=== PATIENT | male | born 1985 | race Caucasian/White ===

== ENCOUNTER 2023-10-22 11:33 | Emergency (ER) | payer OTHER, SELFPAY ==
[2023-10-22 11:34] VITALS: BP 126/91; PULSE 77; RESP 16; TEMP 36.7; O2SAT 99; BMI 29.6
[2023-10-22 12:34] VITALS: BP 115/89; PULSE 88; RESP 16; TEMP 36.2; O2SAT 99
--- NOTE | 2023-10-22 12:39 | ED.VIS.LOWEX ---
HPI History of Present Illness Chief Complaint: Lower Extremity Injury Informant: patient Narrative Narrative: 38-year-old male presenting to the emergency room out of concern for DVT findings on venous Doppler. Patient recently flew to [place] and back. Just over a week after returning home he began to experience some discomfort in the distal medial left thigh extending down onto the proximal left medial leg. He notes there is some erythema. Denies any leg swelling. It continued to bother him reaching a high point on Friday. He was seen in urgent care and was set up for a duplex ultrasound. Pain has gotten better. He came today for a duplex ultrasound which is demonstrating an acute superficial vein thrombosis in the left greater saphenous vein from junction to proximal calf. Thrombus is noted proximally to be about 2.39 cm from the common femoral vein is not compressible. There is acute superficial vein thrombosis noted in the left superficial saphenous vein. Patient denies any chest pain or shortness of breath. He is otherwise a very healthy individual. Patient has a flight scheduled for November to [place]. [facility] Medical History Left leg pain Home Medications ?Medication ?Instructions ?Recorded ?Last Taken ?Type omeprazole 20 mg capsule,delayed 20 mg PO DAILY 10/21/23 Unknown History release apixaban 5 mg (74 tabs) tablets in See Rx Instructions .Route 10/22/23 Unknown Rx a dose pack (Eliquis DVT-PE Treat .COMPLEX #74 tabs 30D Start) Allergy/AdvReac Type Severity Reaction Status Date / Time No Known Allergies Allergy Verified 10/22/23 11:35 Social History Smoking Status: Never smoker alcohol intake: current alcohol intake frequency: a few times a month substance use type: does not use ROS ROS ED Constitutional Constitutional ED: Denies chills or weight loss Eyes Eyes: Denies change in vision or diplopia ENT ENT ED: Denies ear pain, rhinorrhea or sore throat Cardiovascular Cardiovascular: Denies chest pain, orthopnea, palpitations or racing heartbeat Respiratory/Chest Respiratory/Chest: Denies cough, dyspnea or orthopnea Gastrointestinal Gastrointestinal: Denies abdominal pain, diarrhea, nausea or vomiting Genitourinary Genitourinary ED: Denies dysuria, hematuria or urinary frequency Musculoskeletal Musculoskeletal: Reports other Details: See history of present illness ; Denies arthralgias or myalgias Integumentary Denies abscess or rash Neurologic Neurologic: Denies headache(s) or weakness Psychiatric Psychiatric: Denies anxiety, depression, suicidal ideation or suicidal thoughts Endocrine Endocrinology: Denies polydipsia, polyphagia or polyuria Allergic/Immunologic Allergic/Immunologic ED: Denies mouth swelling, tongue swelling or urticaria EXAM Physical Exam Const Vital Signs: 10/22/23 11:34 10/22/23 12:34 Temperature 98.1 F 97.2 F L Temperature Source Temporal Pulse Rate 77 88 Respiratory Rate 16 16 Blood Pressure 126/91 H 115/89 H Blood Pressure Mean 102 97 Pulse Ox 99 99 Oxygen Delivery Method Room Air Positive well nourished and well developed General Appearance ED: well developed HEENT Reports normocephalic, head/scalp atraumatic and moist mucous membranes Eyes PERRL and EOMs intact bilaterally Neck no lymphadenopathy, supple and no JVD Resp normal respiratory effort and clear to auscultation bilaterally Cardio regular rate, regular rhythm and no murmurs GI normal to inspection, nondistended, normoactive bowel sounds and non-tender Palpation: soft Back/Spine no CVA tenderness and normal ROM Extremity Extremity Narrative: Mild tenderness and erythema over the distal medial left thigh. There is palpable cord extending down onto the proximal medial left leg. No significant swelling. General Extremety ED: Negative for edema General Extremity: Negative for edema Neuro oriented x3 and CN's II-XII intact bilaterally Sensorium / Orientation: alert Motor Exam: strength 5/5 throughout Psych mental status grossly normal Mood & Affect: Negative for depressed or tearful Skin no rashes or lesions noted and no wounds MDM MDM MDM Narrative Medical decision making narrative: The proximal point of the clot is about 3.9 cm from the common femoral vein. There further recommendation is for anticoagulation. We discussed that this with the pros and cons with the patient and using shared decision making came upon a mutually agreed upon decision to anticoagulate with Eliquis. Patient is going to establish primary care for follow-up. Patient understands return instructions. History & Record Review Discussion w/independent historian: Patient Discharge Plan Triage Chief Complaint: Lower Extremity Injury ED Provider: James Betts Dx/Rx/DC Orders Clinical Impression: Greater saphenous vein embolism, Left leg pain Instructions: DVT Complications Prescriptions: New Roxanayanyomid DVT-PE Treat 30D Start 5 mg (74 tabs) tablets,dose pack See Rx Instructions .Route .COMPLEX Qty: 74 0RF Rx Instructions: 10 mg p.o. twice daily daily x 7 days. Then 5 mg p.o. twice daily after that No Action omeprazole 20 mg capsule,delayed release(DR/EC) 20 mg PO DAILY Primary Care Provider: Care Physician,No Primary Referrals: Leatha Martini MD [Med Staff - Career Development Manager] - As soon as possible (for primary care follow up) Care Physician,No Primary [Primary Care Provider] - Print Language: Danish Disposition Disposition: Home, Self Care Discharge Date/Time: 10/22/23 12:36
== END 2023-10-22 12:36 | disposition home or self-care (01) ==
PROVIDERS: Emergency Provider Emergency Medicine; Visit Provider Emergency Medicine
DX: I82.812 Embolism and thrombosis of superficial veins of left lower extremity (principal)
CPT/HCPCS: 99282

== ENCOUNTER → 2023-10-22 | Outpatient (CLI) | payer OTHER, SELFPAY ==
--- NOTE | 2023-10-22 10:53 | VDLE_ITS ---
Reason For Study: Left leg pain RIGHT LEFT CFV is compressible, spontaneous, phasic, CFV is compressible, spontaneous, phasic, competent and demonstrates normal competent, and demonstrates normal augmentation. augmentation. Procedure FV is compressible, spontaneous, phasic, This is a venous duplex using B-mode, color competent and demonstrates normal flow and spectral Doppler. augmentation. Exam performed in department. POP V is compressible, spontaneous, phasic, A preliminary report was called and/or faxed competent and demonstrates normal to Luis F ARSHAD. Patient taken to ED for augmentation. treatment since no PCP. T/P Trunk is compressible. PTV is compressible. LT PerV is compressible. Acute superficial vein thrombosis is noted in the left GSV from junction to prox calf. Thrombus is approximately 2.39 cm from CFV. It is NONCOMPRESSIBLE. Acute superficial vein thrombosis is noted in the left SSV prox. It is NONCOMPRESSIBLE. VL/Venous Duplex US, Unilateral Interpretation Summary Acute superficial vein thrombosis is noted in the left great saphenous vein to within 2.39 cm of the junction with common femoral vein. Acute superficial vein thrombosis is noted in the left small saphenous vein Ordering Physician: Luis F Saleh Referring Physician: No Primary Care Physician Performed By: Tiffany Sneed RVT
== END | disposition home or self-care (01) ==
LOC: CVS 10:50
PROVIDERS: Referring Provider Physician Assistant; Visit Provider Physician Assistant
DX: M79.605 Pain in left leg (principal)
CPT/HCPCS: 93971